=== PATIENT | female | born 1970 | race Caucasian/White ===

== ENCOUNTER → 2020-01-19 | Outpatient (CLI) | payer SELFPAY ==
[~2020-01-19] MED LIST: ALBUTEROL2.5 MG/0.5 INH; NKHM; TESSALON PERLE200 MG PO
== END | disposition home or self-care (01) ==
LOC: COVID19 09:07
DX: J06.9 Acute upper respiratory infection, unspecified (principal); J02.9 Acute pharyngitis, unspecified; Z20.828 Contact with and (suspected) exposure to other viral communicable diseases

== ENCOUNTER 2021-02-28 12:37 | Inpatient (IN) | payer OTHER ==
[2021-02-28] VITALS (7 sets, daily range): BP systolic 140–152; BP diastolic 70–86
[~2021-02-28] VITALS: Ht 170.1 cm; Wt 56.0 kg
[2021-02-28 13:15] LABS: BASO % 0.3 % (0.0-1.0); EOS % 0.1 % (1.0-4.0); HEMATOCRIT 44.2 % (37.0-47.0); LYMPH # 0.6 10*3/uL (1.3-4.4); LYMPH % 8.1 % (27.0-41.0); MEAN CELL VOLUME 95.9 fl (81.0-99.0); MEAN CORPUSCULAR HGB 32.3 pg (27.0-31.0); MEAN CORPUSCULAR HGB CONC 33.7 g/dl (33.0-37.0); MEAN PLATELET VOLUME 8.3 fl (9.6-12.3); MONO # 0.6 10*3/uL (0.1-1.0); MONO % 7.9 % (3.0-9.0); NEUT % 83.5 % (47.0-73.0); PLATELET COUNT AUTOMATED 231 10*3/uL (130-400); RED BLOOD COUNT 4.61 10*6/uL (4.10-5.10); RED CELL DISTRI WIDTH 12.2 % (0-14.5); WHITE BLOOD COUNT 7.2 10*3/uL (4.8-10.8)
[2021-02-28 13:19] LABS: BILIRUBIN Negative (Negative); BLOOD Negative (Negative); CLARITY Clear (Clear); COLOR Yellow (Yellow); GLUCOSE Negative (Negative); KETONE 1+ (Negative); NITRITE Negative (Negative); PH 5.5 (4.5-8.0); SPECIFIC GRAVITY 1.015 (1.001-1.030); UROBILINOGEN 0.2 E.U./dl (0.0-1.0)
[2021-02-28 13:28] LABS: LEUKO ESTERASE Trace (Negative)
[2021-02-28 13:30] LABS: BACTERIA 2+
[2021-02-28 13:30] LABS: ALBUMIN 3.8 gm/dl (3.1-4.5); ALKALINE PHOSPHATASE 67 U/L (45-117); BUN 9 mg/dl (7-24); CHLORIDE 106 mmol/L (98-107); CREATININE 0.81 mg/dL (0.55-1.02); LIPASE 83 U/L (73-393); POTASSIUM 3.8 mmol/L (3.5-5.1); SGOT/AST 19 IU/L (3-35); SGPT/ALT 20 U/L (12-78); SODIUM 138 mmol/L (136-145); TOTAL PROTEIN 7.4 gm/dL (6.4-8.2)
[2021-02-28] MEDS ORDERED: Motrin,Rufen800 MG PO (23:00)
[2021-03-01] VITALS (9 sets, daily range): BP systolic 94–157; BP diastolic 50–90
[2021-03-01 06:36] LABS: BASO % 0.4 % (0.0-1.0); EOS # 0.1 10*3/uL (0.0-0.4); EOS % 2.8 % (1.0-4.0); HEMATOCRIT 40.2 % (37.0-47.0); LYMPH # 1.2 10*3/uL (1.3-4.4); LYMPH % 25.6 % (27.0-41.0); MEAN CELL VOLUME 98.5 fl (81.0-99.0); MEAN CORPUSCULAR HGB 32.1 pg (27.0-31.0); MEAN CORPUSCULAR HGB CONC 32.6 g/dl (33.0-37.0); MEAN PLATELET VOLUME 8.3 fl (9.6-12.3); MONO # 0.6 10*3/uL (0.1-1.0); MONO % 13.3 % (3.0-9.0); NEUT # 2.6 10*3/uL (2.3-7.9); NEUT % 57.7 % (47.0-73.0); PLATELET COUNT AUTOMATED 196 10*3/uL (130-400); RED BLOOD COUNT 4.08 10*6/uL (4.10-5.10); RED CELL DISTRI WIDTH 12.2 % (0-14.5); WHITE BLOOD COUNT 4.6 10*3/uL (4.8-10.8)
[2021-03-01 06:52] LABS: ALBUMIN 3.3 gm/dl (3.1-4.5); ALKALINE PHOSPHATASE 55 U/L (45-117); BUN 9 mg/dl (7-24); CHLORIDE 105 mmol/L (98-107); POTASSIUM 3.6 mmol/L (3.5-5.1); SGOT/AST 16 IU/L (3-35); SGPT/ALT 15 U/L (12-78); SODIUM 141 mmol/L (136-145); TOTAL PROTEIN 6.2 gm/dL (6.4-8.2)
[2021-03-01 07:11] LABS: VITAMIN D, 25-HYDROXY 54.6 ng/mL (30-100)
[2021-03-01 07:19] LABS: FREE T4 1.12 ng/dl (0.76-1.46); THYROID STIM HORMONE (HS) 7.32 uIU/ml (0.358-4.75)
[2021-03-01] MEDS ORDERED: DOK COLACE100 MG PO (12:45)
[2021-03-01] MEDS ORDERED: HYDROCODONE-AC1 EAC1 PO (12:45)
== END 2021-03-01 13:05 | disposition home or self-care (01) | DRG 335 ==
LOC: ED 12:37 → 5E 16:17 → EDHOLD 16:17 → 5E 20:04
PROVIDERS: Physician Assistant; Registered Nurse; ADMIT Internal Medicine; ATTEND Internal Medicine
PROC: 0DTJ4ZZ Resection of Appendix, Percutaneous Endoscopic Approach (ICD-10-PCS; principal; 2021-03-01)
PROC: 0DN Gastrointestinal System, Release (ICD-10-PCS; 2021-03-01)
DX: K66.0 Peritoneal adhesions (postprocedural) (postinfection) (principal); K56.2 Volvulus; E80.6 Other disorders of bilirubin metabolism; F17.290 Nicotine dependence, other tobacco product, uncomplicated; Z79.899 Other long term (current) drug therapy; Z90.710 Acquired absence of both cervix and uterus; Z98.891 History of uterine scar from previous surgery